=== PATIENT | female | born 1975 | race Caucasian/White ===

== ENCOUNTER 2016-04-05 18:26 | Emergency (ER) | payer BC ==
[~2016-04-05] VITALS: Ht 162.6 cm; Wt 74.7 kg
[~2016-04-05 18:26] MED LIST: ADVIN25/60 INH; ALBU1AER9 INH; ATV5X PO; BUPR75TA8 PO; MULT-506 PO; SNG10 PO
[2016-04-05 18:27] VITALS: TEMP 36.9; Ht 162.6 cm; Wt 74.7 kg
[2016-04-05] MEDS ORDERED: DiphenhydrAMINE HCL 50 MG/ML VIAL IM STA (18:34)
[2016-04-05] MEDS ORDERED: HYDR-4383 PO (18:40)
[2016-04-05] MEDS ORDERED: DEXAMETHASONE 4 MG TAB PO ONE (18:45)
[2016-04-05] MEDS ORDERED: FAMOTIDINE 20 MG TAB PO ONE (18:45)
--- NOTE | 2016-04-05 18:45 | EMERGENCY ROOM VISIT NOTE ---
History Report prepared by Shurthi: Radu Puri Under the Supervision of: Dr. Ovidio Brar D.O. First contact with patient: 18:29 Chief Complaint: ALLERGIC REACTION Stated Complaint: NUT ALLERGY History of Present Illness The patient is a 41 year old female who presents to the Emergency Room with complaints of a sudden allergic reaction to walnuts beginning one hour prior to arrival. She associates facial swelling and difficulty breathing with today's symptoms. The patient notes she is allergic to all nuts and has had reactions in the past. She states she took 20 ml Benadryl forty-five minutes ago, and she does not have any EpiPens at home. Pt denies LOC, headache, fevers, chills, diaphoresis, visual changes, neck pain, chest pain, nausea, vomiting, abdominal pain, back pain, melena, hematochezia, urinary symptoms, numbness, weakness, lymphadenopathy, rash, or other complaints. 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 Review of Systems See HPI for pertinent positives and negatives. A total of ten systems were reviewed and were otherwise negative. Past Medical & Surgical Medical Problems: (1) Asthma (2) Lumbago (3) Nut allergy Surgical Problems: (1) No significant past surgical history Family History Hypertension Social History Smoking Status: Never Smoker Alcohol Use: occasionally Marital Status: in relationship Housing Status: lives with family, lives with significant other Occupation Status: employed Current/Historical Medications Scheduled Epinephrine (Epipen), 0.3 MG IM UD Fluticasone Prop/Salmeterol (Advair Diskus 250/50 60 Dose), 1 PUFFS INH BID Scheduled PRN Albuterol Sulfate (Proair Hfa), 2 PUFF INH Q4 PRN for SOB/Wheezing Hydrocodone/Acetaminophen (Royal 10/325 Tab), 1 TAB PO Q6 PRN for Pain Allergies Coded Allergies: Influenza Vaccines (Verified Allergy, Unknown, RASH, 04/05/16) ALLERGIC TO EGGS; HAS NEVER HAD THE FLU VACCINE. NUTS (Unverified Allergy, Unknown, ANAPHYLAXIS, 04/05/16) Uncoded Allergies: EGGS (Allergy, Severe, ANAPHYLAXIS, 12/21/13) Physical Exam Vital Signs Date Time Temp Pulse Resp B/P Pulse Ox O2 Delivery O2 Flow Rate FiO2 04/05/16 21:43 100 127/77 97 Nasal Cannula 3.0 04/05/16 19:45 96 18 111/73 96 Nasal Cannula 2.0 04/05/16 19:26 97 Room Air 04/05/16 19:19 96 Room Air 04/05/16 19:09 101 20 101/77 97 Room Air 04/05/16 18:27 36.9 75 20 132/91 97 Room Air Physical Exam GENERAL: Awake, alert, well-appearing, in no distress HENT: Right cheek swelling. Oropharynx unremarkable. EYES: Normal conjunctiva. Sclera non-icteric. NECK: Supple. No nuchal rigidity. FROM. No JVD. RESPIRATORY: Clear to auscultation. CARDIAC: Regular rate, normal rhythm. Extremities warm and well perfused. Pulses equal. ABDOMEN: Soft, non-distended. No tenderness to palpation. No rebound or guarding. No masses. RECTAL: Deferred. MUSCULOSKELETAL: Chest examination reveals no tenderness. The back is symmetrical on inspection without obvious abnormality. There is no CVA tenderness to palpation. No joint edema. LOWER EXTREMITIES: Calves are equal size bilaterally and non-tender. No edema. No discoloration. NEURO: Normal sensorium. No sensory or motor deficits noted. SKIN: Mildly flush appearing. No rash or jaundice noted. Medical Decision & Procedures Medications Administered Medications (Trade) Dose Ordered Sig/Maria Isabel Route Start Time Stop Time Status Last Admin Dose Admin Diphenhydramine HCl (Benadryl Inj) 25 mg NOW STAT IM 04/05/16 18:34 04/05/16 18:36 DC 04/05/16 18:46 25 MG Famotidine (Pepcid Tab) 20 mg NOW ONCE PO 04/05/16 18:45 04/05/16 18:46 DC 04/05/16 18:46 20 MG Dexamethasone (Decadron Tab) 8 mg NOW ONCE PO 04/05/16 18:45 04/05/16 18:46 DC 04/05/16 18:46 8 MG Albuterol Sulfate (Ventolin 0.083% 2.5MG/3ML Neb) 2.5 mg NOW STAT INH 04/05/16 19:13 04/05/16 19:15 DC 04/05/16 19:18 2.5 MG Epinephrine HCl (EpINEphrine INJ 1MG/ML AMP/VIAL) 0.3 mg NOW STAT IM 04/05/16 19:35 04/05/16 19:37 DC 04/05/16 19:40 0.3 MG ED Course 1829: The patient was evaluated in room C12B. A complete history and physical exam was performed. 1833: Ordered Benadryl Inj 25 mg IM. 1844: Ordered Decadron Tab 8 mg PO, Pepcid Tab 20 mg PO. 1912: Ordered Albuterol Sulfate 2.5 mg INH. 1934: Ordered Epinephrine HCl 0.3 mg IM. 1939: Reevaluated the patient at this time, and she was mildly hypoxic and tachypneic. The patient had severe rhonchi bilaterally. She was getting a nebulizer treatment at the time. The patient's blood pressure had dropped a little. After discussion, the patient agreed to an Epi, and it was administered. Her vital signs are stabilizing. 1999: Reevaluated the patient at this time, and she is doing much better. The patient is off of the oxygen and her vital signs are good. She is no longer diaphoretic. 2042: Reevaluated the patient at this time, and she is feeling a lot better. The patient is beginning to develop some hives that she did not experience earlier. 2135: Reevaluated the patient at this time, and she is doing much better. She will be taken off oxygen and monitored in case she de-stats. 2199: Ordered Epipen 0.3 mg IM. 2204: I reevaluated the patient. Discussed results and discharge instructions: She verbalized understanding and agreement. The patient is ready for discharge. Medical Decision Differential diagnosis: Etiologies such as allergic reaction, anaphylaxis, urticaria, Bravo-Omer syndrome, toxic epidermal necrolysis, erythema multiforme, cellulitis, as well as others were entertained. MDM: 41-year-old female presents here after eating walnuts with allergic reaction she took Benadryl at home. She is still noting symptoms of feeling very flush and swelling of her right cheek. She denied any shortness of breath but feels like her throat was getting more swollen. Examination of her lungs are clear, vital signs are stable, pharyngeal evaluation was negative. During her ED course she started developing symptoms of feeling very flush developed hives and more shortness of breath at that point in time I was able to convince her to take epinephrine. Refusing epinephrine prior to this. She was given 0.3 mg of IM epinephrine and her left thigh. She rapidly improved over the next 20 minutes. She was observed in the emergency department for 2 hours. With resolution of most of her symptoms. She was stabilized in the emergency department and discharged to home with an EpiPen. 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 The patient's presentation and history is c/w the impression provided. A partial list of DDx that has been considered is listed above. By the evaluation outlined above other emergent etiologies such as those listed in the differential, as well as others, were deemed relatively unlikely. The patient has been informed about today's findings. All questions were answered to satisfaction and understanding. They are pleased with the care provided. Patient education and return instructions were discussed as per my usual and the patient was discharged in stable condition as agreed upon by the patient. The patient was referred for close follow-up and informed that they will need to call to schedule appointment during the next business hours. The chart was completed utilizing a scribe and [employer] Speech voice recognition software. Utilizing these services results in errors at time as they are imperfect. Grammatical errors, random word insertions, pronoun errors, and incomplete sentences are an occasional consequence of this system due to software limitations, ambient noise, and hardware issues. Any formal questions or concerns about the content, text, or information contained within the body of this dictation should be directly addressed to the physician for clarification. Impression Primary Impression: Anaphylaxis Additional Impressions: Urticaria, Allergic reaction Scribe Attestation The scribe's documentation has been prepared under my direction and personally reviewed by me in its entirety. I confirm that the note above accurately reflects all work, treatment, procedures, and medical decision making performed by me. Departure Information Dispostion Home / Self-Care Prescriptions Epinephrine (EPIPEN) 0.3 Mg/0.3 Ml Inj 0.3 MG IM UD for 1 Day, #1 BOX 1 Refill Prov: Ovidio Brar JR., 04/05/16 Referrals Syeda Polk (PCP) Forms HOME CARE DOCUMENTATION FORM, IMPORTANT VISIT INFORMATION Patient Instructions A Signature Page, ED Anaphylaxis General, [facility] Additional Instructions Take Zyrtec or Claritin daily as needed for allergic reaction or skin rash. If your allergy become severe take Benadryl. If you note shortness of breath, feeling ill, feeling like you might pass out then use your epinephrine auto injector as directed. Return to the emergency Department as needed or if you use epinephrine auto injector.
[2016-04-05] MEDS ORDERED: ONDANSETRON INJ 2 MG/ML 2 ML VIAL IV STA (19:11)
[2016-04-05] MEDS ORDERED: SODIUM CHLORIDE 0.9% 1000ML 1,000 ML IV STA (19:11)
[2016-04-05] MEDS ORDERED: ALBUTEROL 0.083% NEBU SOLN 3 ML VIAL INH STA (19:13)
[2016-04-05 19:19] VITALS: O2SAT 96
[2016-04-05] MEDS ORDERED: EpINEphrine INJ 1MG/ML AMP 1 MG/ML AMP IM STA (19:35)
[2016-04-05] MEDS ORDERED: EpINEphrine INJ 1MG/ML AMP 1 MG/ML AMP ONE (19:36)
[2016-04-05 21:43] VITALS: BP 127/77; PULSE 100; O2SAT 97
[2016-04-05] MEDS ORDERED: EPP3/2 IM (21:48)
[2016-04-05] MEDS ORDERED: EPINEPHRINE ADULT AUTO-INJECT 0.3 MG SYR IM PRN (22:00)
== END 2016-04-05 22:15 | disposition home or self-care (01) ==
LOC: C.EDB 18:26 → C.EDC 22:15
DX: T78.05XA Anaphylactic reaction due to tree nuts and seeds, initial encounter (principal); L50.0 Allergic urticaria; X58.XXXA Exposure to other specified factors, initial encounter

== ENCOUNTER → 2016-04-09 | Outpatient (CLI) | payer BC ==
[~2016-04-09] MED LIST changes: -ATV5X PO; -BUPR75TA8 PO; +EPP3/2 IM; +HYDR-4383 PO; -MULT-506 PO; -SNG10 PO
== END | disposition home or self-care (01) ==
LOC: C.LABSPEC 16:03
PROVIDERS: ATTEND Obstetrics & Gynecology
DX: N89.8 Other specified noninflammatory disorders of vagina (principal)

== ENCOUNTER → 2016-04-09 | Outpatient (CLI) | payer BC | END | disposition home or self-care (01) | LOC: C.PAPS 11:20 | PROVIDERS: ATTEND Obstetrics & Gynecology | DX: N89.8 Other specified noninflammatory disorders of vagina (principal) ==

== ENCOUNTER → 2016-04-22 | Outpatient (CLI) | payer BC | END | disposition home or self-care (01) | LOC: C.PATHSPEC 17:38 | PROVIDERS: ATTEND Obstetrics & Gynecology | DX: N85.8 Other specified noninflammatory disorders of uterus (principal) ==

== ENCOUNTER → 2017-02-11 | Outpatient (CLI) | payer BC ==
--- NOTE | 2017-02-11 12:55 | DIAGNOSTIC IMAGING REPORT ---
L-SPINE MIN 4 VIEWS ROUTINE HISTORY: Trauma pain COMPARISON: 12/21/2013 FINDINGS: There is no fracture. No subluxation. Considerable degenerative disc change L5-S1 unchanged from the prior study. IMPRESSION: No acute process. Degenerative change L5-S1 unaltered from the prior exam. The above report was generated using voice recognition software. It may contain grammatical, syntax or spelling errors. Electronically signed by: Roland Mullins M.D. 02/11/2017 12:54 PM Dictated Date/Time: 02/11/2017 12:53 PM
--- NOTE | 2017-02-11 12:58 | DIAGNOSTIC IMAGING REPORT ---
THORACIC SPINE 3 VIEWS ROUTINE HISTORY: Pain trauma COMPARISON: 12/21/2013 FINDINGS: There is no fracture. Mild scoliosis. Mild degenerative disc changes throughout. IMPRESSION: Mild scoliosis. Mild degenerative disc change. No acute process. The above report was generated using voice recognition software. It may contain grammatical, syntax or spelling errors. Electronically signed by: Roland Mullins M.D. 02/11/2017 12:57 PM Dictated Date/Time: 02/11/2017 12:54 PM
== END | disposition home or self-care (01) ==
LOC: C.RAD1850 12:36
PROVIDERS: ATTEND Student in an Organized Health Care Education/Training Program
DX: M54.10 Radiculopathy, site unspecified (principal); Z87.828 Personal history of other (healed) physical injury and trauma